=== PATIENT | female | born 1995 | race Caucasian/White ===

== ENCOUNTER 2019-08-02 16:09 | Emergency (ER) | payer SELFPAY ==
[2019-08-02] MEDS ORDERED: predniSONE 20 MG TAB ONE (17:04)
== END 2019-08-02 18:00 | disposition home or self-care (01) ==
LOC: BURERS 16:09
DX: J45.901 Unspecified asthma with (acute) exacerbation (principal); F32.9 Major depressive disorder, single episode, unspecified; F17.210 Nicotine dependence, cigarettes, uncomplicated; Z79.899 Other long term (current) drug therapy
CPT/HCPCS: J7512; J7620

== ENCOUNTER 2020-07-14 17:56 | Emergency (ER) | payer SELFPAY ==
[2020-07-14] MEDS ORDERED: Budesonide 0.5 MG/2 ML NEB ONE (18:11)
[2020-07-14] MEDS ORDERED: Albuterol 200 PUFF (6.7GM INHALER) ONE (18:12)
== END 2020-07-14 19:07 | disposition home or self-care (01) ==
LOC: BURERS 17:56
DX: J45.901 Unspecified asthma with (acute) exacerbation (principal); E03.9 Hypothyroidism, unspecified; J45.909 Unspecified asthma, uncomplicated; F17.210 Nicotine dependence, cigarettes, uncomplicated
CPT/HCPCS: J7626

== ENCOUNTER 2020-11-23 13:12 | Emergency (ER) | payer OTHER ==
[2020-11-23 13:54] LABS: #Basophils 0.1 thou/uL (0.0-0.2); #Eosinphils 0.5 thou/uL (0.0-0.7); #Lymphocytes 3.2 thou/uL (1.20-3.40); #Monocytes 0.8 thou/uL (0.11-0.59); #Neutrophils 8.5 thou/uL (1.40-6.50); %Basophils 0.6 % (0.0-1.0); %Eosinophils 3.6 % (0.0-10.0); %Lymphocytes 24.6 % (21.0-51.0); %Monocytes 6.3 % (0.0-10.0); %Neutrophils 64.9 % (42.0-75.0); Hemoglobin 13.5 g/dL (12.0-16.0); Mean Corpuscular HGB CONC 33.8 g/dL (32.0-36.0); Mean Corpuscular Hemoglobin 32.3 pg (27.0-31.0); Mean Corpuscular Volume 95.8 fL (78.0-98.0); Mean Platelet Volume 6.9 fL (7.4-10.4); Platelet Count 237 thou/uL (130-400); RBC Distribution Width 13.3 % (11.5-14.5); Red Blood Cell (RBC) Count 4.17 mill/uL (4.20-5.40)
[2020-11-23 14:09] LABS: ALT (SGPT) Less than 7 U/L (8-55); AST (SGOT) 15 U/L (5-34); Albumin 3.8 g/dL (3.5-5.0); Alkaline Phosphatase 73 U/L (40-110); Anion Gap 12 mmol/L (10-20); BUN (Urea Nitrogen) Less than 4 mg/dL (7.0-18.7); Bilirubin, Total 0.4 mg/dL (0.2-1.2); Calc. Creatinine Clearance 0 mL/min (70-130); Calcium 9.5 mg/dL (7.8-10.44); Carbon Dioxide 20 mmol/L (22-29); Chloride 107 mmol/L (98-107); Globulin 2.8 g/dL (2.4-3.5); Glucose 87 mg/dL (70-105); Potassium 3.4 mmol/L (3.5-5.1); Protein, Total 6.6 g/dL (6.0-8.3); Sodium 136 mmol/L (136-145)
[2020-11-23 14:27] LABS: Bilirubin Negative (Negative); Blood, Urine Trace (Negative); Clarity Clear (Clear); Glucose, Urine (Dipstick) Negative (Negative); Ketone, Urine Negative (Negative); Leukocyte Trace (Negative); Nitrite Negative (Negative); Protein, Urine (Dipstick) Negative (Neg-Trace); Urobilinogen 0.2 mg/dL (Less than 2)
[2020-11-23 14:35] LABS: Bacteria/HPF 1+ HPF (None Seen); RBC/HPF None Seen HPF (0-3); Squamous Epithelial 0-3 HPF (0-3); WBC/HPF 0-3 HPF (0-3)
[2020-11-23] MEDS ORDERED: Magnesium 2 GM/50 ML BAG (IN WATER) ONE (14:54)
== END 2020-11-23 15:19 | disposition home or self-care (01) ==
LOC: BURERS 13:12
DX: E86.0 Dehydration (principal); R53.1 Weakness; R11.10 Vomiting, unspecified; E03.9 Hypothyroidism, unspecified; J45.909 Unspecified asthma, uncomplicated; F17.210 Nicotine dependence, cigarettes, uncomplicated
CPT/HCPCS: 36415; 80053; 81003; 81015; 85025; 96365; J3475

== ENCOUNTER 2021-03-05 18:36 | Emergency (ER) | payer OTHER ==
[2021-03-05] MEDS ORDERED: predniSONE 20 MG TAB ONE (18:57)
[2021-03-05] MEDS ORDERED: Albuterol Sulfate 2.5 mg/0.5 ml Neb ONE (18:57)
[2021-03-05] MEDS ORDERED: Albuterol Sulfate 1.25 MG/3 ML NEB ONE (19:04)
[2021-03-05] MEDS ORDERED: Albuterol 200 PUFF (6.7GM INHALER) ONE (20:02)
== END 2021-03-05 20:10 | disposition home or self-care (01) ==
LOC: BURERS 18:36
DX: O99.513 Diseases of the respiratory system complicating pregnancy, third trimester (principal); J45.901 Unspecified asthma with (acute) exacerbation; Z3A.34 34 weeks gestation of pregnancy; O99.283 Endocrine, nutritional and metabolic diseases complicating pregnancy, third trimester
CPT/HCPCS: J7512; J7611

== ENCOUNTER 2021-06-12 19:59 | Emergency (ER) | payer OTHER ==
[2021-06-12] MEDS ORDERED: Metoclopramide HCl 10 MG/2 ML VIAL ONE (21:36)
[2021-06-12] MEDS ORDERED: HYDROcodone/Acetaminophen 5/325 mg Tablet ONE (21:58)
[2021-06-12] MEDS ORDERED: predniSONE 20 MG TAB ONE (21:59)
== END 2021-06-12 22:33 | disposition left against medical advice (07) ==
LOC: BURERS 19:59
DX: J45.909 Unspecified asthma, uncomplicated (principal); E03.9 Hypothyroidism, unspecified
CPT/HCPCS: 96372; J2765; J7512; J7620

== ENCOUNTER 2022-01-09 14:28 | Emergency (ER) | payer OTHER ==
[2022-01-09] MEDS ORDERED: predniSONE 20 MG TAB ONE (14:53)
== END 2022-01-09 15:25 | disposition home or self-care (01) ==
LOC: BURERS 14:28
DX: J45.901 Unspecified asthma with (acute) exacerbation (principal)
CPT/HCPCS: 94640; J7512; J7620

== ENCOUNTER 2022-02-09 19:55 | Emergency (ER) | payer OTHER ==
[2022-02-09] MEDS ORDERED: Acetaminophen/Codeine 30-300mg Tablet ONE (20:25)
[2022-02-09] MEDS ORDERED: Ketorolac Tromethamine 60 MG/2 ML VIAL ONE (20:26)
[2022-02-09] MEDS ORDERED: Amoxicillin/Potassium Clav 875 MG TAB ONE (20:26)
[2022-02-09] MEDS ORDERED: AMOXicillin 250 MG CAP ONE (20:30)
== END 2022-02-09 20:48 | disposition home or self-care (01) ==
LOC: BURERS 19:55
DX: K04.7 Periapical abscess without sinus (principal); K02.9 Dental caries, unspecified; J45.909 Unspecified asthma, uncomplicated; Z79.899 Other long term (current) drug therapy
CPT/HCPCS: 96372; 99282; J1885

== ENCOUNTER 2022-04-11 14:29 | Emergency (ER) | payer OTHER ==
[2022-04-11] MEDS ORDERED: predniSONE 20 MG TAB ONE (14:47)
[2022-04-11] MEDS ORDERED: Ipratropium/Albuterol 3 ML NEB ONE (14:48)
== END 2022-04-11 15:17 | disposition home or self-care (01) ==
LOC: BURERS 14:29
DX: J45.901 Unspecified asthma with (acute) exacerbation (principal)
CPT/HCPCS: J7512; J7620

== ENCOUNTER 2022-08-04 17:38 | Emergency (ER) | payer OTHER ==
[2022-08-04] MEDS ORDERED: Ibuprofen 800 MG TAB ONE (18:00)
== END 2022-08-04 19:10 | disposition home or self-care (01) ==
LOC: BURERS 17:38
DX: S93.401A Sprain of unspecified ligament of right ankle, initial encounter (principal); S93.601A Unspecified sprain of right foot, initial encounter; X50.9XXA Other and unspecified overexertion or strenuous movements or postures, initial encounter

== ENCOUNTER 2022-08-15 20:12 | Emergency (ER) | payer OTHER ==
[2022-08-15] MEDS ORDERED: Ibuprofen 800 MG TAB ONE (20:52)
[2022-08-15] MEDS ORDERED: HYDROcodone/Acetaminophen 10/325 mg Tablet ONE (20:52)
== END 2022-08-15 21:02 | disposition home or self-care (01) ==
LOC: BURERS 20:12
DX: S93.401A Sprain of unspecified ligament of right ankle, initial encounter (principal); X58.XXXA Exposure to other specified factors, initial encounter
CPT/HCPCS: 99283

== ENCOUNTER 2022-11-10 14:18 | Emergency (ER) | payer OTHER ==
[2022-11-10] MEDS ORDERED: Ketorolac Tromethamine 30 MG/ML VIAL ONE (14:36)
[2022-11-10] MEDS ORDERED: Metoclopramide HCl 10 MG/2 ML VIAL ONE (14:36)
== END 2022-11-10 14:50 | disposition left against medical advice (07) ==
LOC: BURERS 14:18
DX: G43.909 Migraine, unspecified, not intractable, without status migrainosus (principal)
CPT/HCPCS: 96374; 96375; J1885; J2765

== ENCOUNTER 2023-11-11 20:03 | Emergency (ER) | payer SELFPAY ==
[2023-11-11] MEDS ORDERED: Ibuprofen 800 MG TAB ONE (20:39)
[2023-11-11] MEDS ORDERED: NEOMYCIN-POLYMYXIN-HC EAR SUSP 200 DROP/10 ML BOT ONE (20:48)
== END 2023-11-11 20:55 | disposition home or self-care (01) ==
LOC: BURERS 20:03
DX: H60.92 Unspecified otitis externa, left ear (principal)
CPT/HCPCS: 99282

== ENCOUNTER 2023-11-12 20:53 | Emergency (ER) | payer SELFPAY ==
[~2023-11-12 20:53] MED LIST: Iopamidol 370 76% 100 ML VIAL ONE
[2023-11-12 21:41] LABS: #Basophils 0.1 thou/uL (0.0-0.2); #Eosinphils 0.7 thou/uL (0.0-0.7); #Monocytes 0.8 thou/uL (0.11-0.59); #Neutrophils 6.6 thou/uL (1.40-6.50); %Basophils 0.9 % (0.0-1.0); %Eosinophils 5.4 % (0.0-10.0); %Monocytes 6.5 % (0.0-10.0); %Neutrophils 54.3 % (42.0-75.0); Hemoglobin 14.4 g/dL (12.0-16.0); Mean Corpuscular HGB CONC 34.2 g/dL (32.0-36.0); Mean Corpuscular Hemoglobin 30.3 pg (27.0-31.0); Mean Corpuscular Volume 88.7 fl (78.0-98.0); Mean Platelet Volume 6.4 fL (7.4-10.4); Platelet Count 247 10x3/uL (130-400); RBC Distribution Width 11.7 % (11.5-14.5); Red Blood Cell (RBC) Count 4.73 mill/uL (4.20-5.40); White Blood Cell (WBC) Count 12.2 10x3/uL (4.8-10.8)
[2023-11-12 21:57] LABS: ALT (SGPT) 32 U/L (8-55); AST (SGOT) 28 U/L (5-34); Albumin 4.2 g/dL (3.5-5.0); Alkaline Phosphatase 76 U/L (40-110); Anion Gap 15 mmol/L (10-20); BUN (Urea Nitrogen) 6 mg/dL (7.0-18.7); Bilirubin, Total 0.5 mg/dL (0.2-1.2); Calc. Creatinine Clearance 0 mL/min (70-130); Calcium 9.7 mg/dL (7.8-10.44); Carbon Dioxide 18 mmol/L (22-29); Chloride 109 mmol/L (98-107); Estimated GFR 92; Globulin 3.3 g/dL (2.4-3.5); Glucose 104 mg/dL (70-105); Potassium 3.6 mmol/L (3.5-5.1); Protein, Total 7.5 g/dL (6.0-8.3); Sodium 138 mmol/L (136-145)
[2023-11-12] MEDS ORDERED: Piperacillin/Tazobactam 4.5 GM VIAL ONE (22:13)
[2023-11-12] MEDS ORDERED: Ketorolac Tromethamine 30 MG (1 mL) VIAL ONE (22:13)
[2023-11-12] MEDS ORDERED: Morphine 4 MG/ML VIAL ONE (23:05)
[2023-11-12] MEDS ORDERED: Ciprofloxacin Lactate D5W 400 mg (200 mL) BAG ONE (23:23)
[2023-11-12] MEDS ORDERED: Ondansetron PF 4 MG/2 ML Vial ONE (23:48)
== END 2023-11-13 00:34 | disposition home or self-care (01) ==
LOC: BURERS 20:53
DX: H60.502 Unspecified acute noninfective otitis externa, left ear (principal); E03.9 Hypothyroidism, unspecified; J45.909 Unspecified asthma, uncomplicated; G43.909 Migraine, unspecified, not intractable, without status migrainosus
CPT/HCPCS: 70487; 80053; 85025; 96365; 96367; 96375; J0744; J1885; J2272; J2405; J2543; Q9967

== ENCOUNTER 2024-01-19 11:32 | Emergency (ER) | payer SELFPAY ==
[2024-01-19] MEDS ORDERED: Ipratropium/Albuterol 3 ML NEB ONE (11:56)
[2024-01-19] MEDS ORDERED: predniSONE 20 MG TAB ONE (11:57)
== END 2024-01-19 12:27 | disposition home or self-care (01) ==
LOC: BURERS 11:32
DX: J45.901 Unspecified asthma with (acute) exacerbation (principal)
CPT/HCPCS: J7512; J7620